=== PATIENT | female | born 1995 ===

== ENCOUNTER 2017-08-03 12:08 | Emergency (ER) | payer OTHER ==
[2017-08-03 12:58] VITALS: BP 113/60; PULSE 100; RESP 16; TEMP 98.7; O2SAT 100
[2017-08-03 15:56] LABS: BILIRUBIN, URINE NEG (NEG); BLOOD, URINE NEG (NEG); GLUCOSE,URINE NEG (NEG); HYALINE CAST, URINE 9 /lpf (RARE); KETONE, URINE 10 mg/dL (NEG); MUCUS URINE MOD /lpf (OCC); NITRITE,URINE NEG (NEG); SQUAMOUS EPITHELIAL CELL URINE 6 /hpf (0-5); TRANSITIONAL EPI CELLS, URINE <1 /hpf; URINE COLOR YELLOW (YELLW/STRAW); URINE LEUKOCYTE ESTERASE NEG (NEG)
[2017-08-03 15:57] LABS: AUTOMATED NEUTROPHIL # 2.3 TH/MM3 (1.8-7.7); BASOPHIL % 0.6 % (0.0-2.0); HEMATOCRIT 36.4 % (35.0-46.0); HEMOGLOBIN 12.3 GM/DL (11.6-15.3); LYMPH % 18.2 % (9.0-44.0); LYMPHOCYTE # 0.6 TH/MM3 (1.0-4.8); MEAN CORPUSCULAR HGB CONC 33.7 % (32.0-36.0); MEAN PLATELET VOLUME 9.6 FL (7.0-11.0); MONO % 14.1 % (0.0-8.0); MONOCYTE # 0.5 TH/MM3 (0-0.9); NEUT % 67.1 % (16.0-70.0); PLATELET COUNT 138 TH/MM3 (150-450); RED BLOOD COUNT 3.96 MIL/MM3 (4.00-5.30); RED CELL DISTRIBUTION WIDTH 12.9 % (11.6-17.2); WHITE BLOOD COUNT 3.4 TH/MM3 (4.0-11.0)
[2017-08-03 16:11] LABS: ALBUMIN 4.2 GM/DL (3.4-5.0); ALT (GPT) 17 U/L (9-42); AST (GOT) 18 U/L (16-38); BICARBONATE 24.2 MEQ/L (21.0-32.0); BLOOD UREA NITROGEN 14 MG/DL (7-18); CALCIUM 9.1 MG/DL (8.5-10.1); CHLORIDE 103 MEQ/L (98-107); CREATININE 0.91 MG/DL (0.50-1.00); GLOMERULAR FILTRATION RATE 80 ML/MIN (>89); GLUCOSE,RANDOM 69 MG/DL (74-106); SODIUM (NA) 137 MEQ/L (136-145)
[2017-08-03 16:13] LABS: ALKALINE PHOSPHATASE 43 U/L (45-117); TOTAL BILIRUBIN ADULT 0.6 MG/DL (0.2-1.0); TOTAL PROTEIN 7.8 GM/DL (6.4-8.2)
[2017-08-03 16:48] LABS: BANDS 4 % (0-6); LYMPHOCYTES 20 % (9-44); MONOCYTES 9 % (0-8); NEUTROPHIL # MANUAL DIFF 2.4 TH/MM3 (1.8-7.7); POLYS (SEG NEUTROPHILS) 67 % (16-70)
[2017-08-03] MEDS ORDERED: SODIUM CHLOR 0.9% 1000 ML INJ 1,000 ML IV SCH (17:27)
[2017-08-03 17:28] VITALS: O2SAT 99
[2017-08-03] MEDS ORDERED: ALUMINUM/MAGNESIUM/SIMETH 30 ML CUP PO ONE (17:30)
[2017-08-03] MEDS ORDERED: KETOROLAC TROMETHAMINE 30 MG/ML (IVP) VIAL IVP ONE (17:30)
[2017-08-03] MEDS ORDERED: LIDOCAINE VISCOUS 2% SOLN 15 ML UDC PO ONE (17:30)
[2017-08-03] MEDS ORDERED: FAMOTIDINE 20 MG/2 ML VIAL IV PUSH ONE (17:30)
[2017-08-03] MEDS ORDERED: SODIUM CHLORIDE 0.9% FLUSH 10 ML FLUSH IV FLUSH PRN (17:30)
--- NOTE | 2017-08-03 17:33 | PD ---
HPI Chief Complaint: Abdominal Pain Time Seen by Provider: 17:16 Travel History International Travel<30 days: No Contact w/Intl Traveler<30days: No Traveled to known affect area: No History of Present Illness HPI The patient is a 21-year-old female who presents to the emergency department for headache and epigastric abdominal pain. The patient is a 2 to three-day history of epigastric abdominal pain that is sharp, constant, however , now described as intermittent. The pain is now located in the upper abdomen, midline, and sharp. She denies any nausea, vomiting, or diarrhea. She also complains of fever as high as 103 this morning, alleviated with Tylenol. She also complains of a mild frontal headache over the frontal sinuses between the nose. She denies pain with extraocular movement, photophobia, diplopia, congestion, sore throat, neck pain, cough, nausea, vomiting, diarrhea, dysuria, frequency, urgency, or vaginal discharge. She has some generalized myalgias, however, that she rates her myalgias to running. The patient is a runner, runs approximately 50-60 miles per week. She is currently a student at [employer]. [facility] Past Medical History Medical History: Denies Significant Hx ?: Not LMP: 06/30/2017 Past Surgical History Narrative Surgical [place] tooth surgery Oral Surgery: Yes Social History Alcohol Use: No Tobacco Use: No Substance Use: No Allergies-Medications (Allergen,Severity, Reaction): Coded Allergies: No Known Allergies (Unverified , 08/03/17) Review of Systems Except as stated in HPI: all other systems reviewed are Neg General / Constitutional: Positive: Fever Eyes: No: Blurred Vision, Photophobia, Redness, Foreign Body Sensation, Pain, Visual changes HENT: Positive: Headaches, No: Sore Throat, Rhinitis, Rhinorrhea, Congestion, Neck Pain Cardiovascular: No: Chest Pain or Discomfort Respiratory: No: Cough Gastrointestinal: Positive: Abdominal Pain, No: Nausea, Vomiting, Diarrhea Genitourinary: No: Dysuria, Discharge Musculoskeletal: Positive: Myalgias Skin: No Rash Physical Exam Narrative GENERAL: Awake, alert, pleasant 21-year-old female who appears her stated age and is in no acute respiratory distress. SKIN: Focused skin assessment warm/dry. HEAD: Atraumatic. Normocephalic. EYES: Pupils equal and round. No scleral icterus. No injection or drainage. ENT: No nasal bleeding or discharge. Mucous membranes pink and moist. NECK: Trachea midline. No JVD. CARDIOVASCULAR: Regular rate and rhythm. No murmur appreciated. RESPIRATORY: No accessory muscle use. Clear to auscultation. Breath sounds equal bilaterally. GASTROINTESTINAL: Abdomen soft, non-tender, nondistended. Hepatic and splenic margins not palpable. MUSCULOSKELETAL: No obvious deformities. No clubbing. No cyanosis. No edema. NEUROLOGICAL: Awake and alert. No obvious cranial nerve deficits. Motor grossly within normal limits. Normal speech. PSYCHIATRIC: Appropriate mood and affect; insight and judgment normal. Data Data Last Documented VS Vital Signs Date Time Temp Pulse Resp B/P (MAP) Pulse Ox O2 Delivery O2 Flow Rate FiO2 08/03/17 17:28 99 Room Air 08/03/17 16:36 18 08/03/17 12:58 98.7 100 113/60 (77) Orders Orders Complete Blood Count With Diff (08/03/17 12:59) Comprehensive Metabolic Panel (08/03/17 12:59) Lipase (08/03/17 12:59) Urinalysis - C+S If Indicated (08/03/17 12:59) Ed Urine Pregnancytest Poc (08/03/17 12:59) Iv Access Insert/Monitor (08/03/17 17:27) Ecg Monitoring (08/03/17 17:27) Oximetry (08/03/17 17:27) Sodium Chlor 0.9% 1000 Ml Inj (Ns 1000 M (08/03/17 17:27) Sodium Chloride 0.9% Flush (Ns Flush) (08/03/17 17:30) Famotidine Inj (Pepcid Inj) (08/03/17 17:30) Ketorolac Inj (Toradol Inj) (08/03/17 17:30) Al-Mag Hy-Si 40-40-4 Mg/Ml Liq (Mag-Al P (08/03/17 17:30) Lidocaine 2% Viscous (Xylocaine 2% Visco (08/03/17 17:30) Monoscreen (08/03/17 17:33) Labs Laboratory Tests Test 08/03/17 14:20 08/03/17 18:15 White Blood Count 3.4 TH/MM3 Red Blood Count 3.96 MIL/MM3 Hemoglobin 12.3 GM/DL Hematocrit 36.4 % Mean Corpuscular Volume 92.0 FL Mean Corpuscular Hemoglobin 31.0 PG Mean Corpuscular Hemoglobin Concent 33.7 % Red Cell Distribution Width 12.9 % Platelet Count 138 TH/MM3 Mean Platelet Volume 9.6 FL Neutrophils (%) (Auto) 67.1 % Lymphocytes (%) (Auto) 18.2 % Monocytes (%) (Auto) 14.1 % Eosinophils (%) (Auto) 0.0 % Basophils (%) (Auto) 0.6 % Neutrophils # (Auto) 2.3 TH/MM3 Lymphocytes # (Auto) 0.6 TH/MM3 Monocytes # (Auto) 0.5 TH/MM3 Eosinophils # (Auto) 0.0 TH/MM3 Basophils # (Auto) 0.0 TH/MM3 CBC Comment AUTO DIFF Differential Total Cells Counted 100 Neutrophils % (Manual) 67 % Band Neutrophils % 4 % Lymphocytes % 20 % Monocytes % 9 % Neutrophils # (Manual) 2.4 TH/MM3 Differential Comment FINAL DIFF MANUAL Platelet Estimate NORMAL Platelet Morphology Comment NORMAL Red Cell Morphology Comment NORMAL Urine Color YELLOW Urine Turbidity HAZY Urine pH 6.0 Urine Specific Carmen 1.032 Urine Protein 100 mg/dL Urine Glucose (UA) NEG mg/dL Urine Ketones 10 mg/dL Urine Occult Blood NEG Urine Nitrite NEG Urine Bilirubin NEG Urine Urobilinogen 2.0 MG/DL Urine Leukocyte Esterase NEG Urine RBC 2 /hpf Urine WBC 2 /hpf Urine Squamous Epithelial Cells 6 /hpf Urine Transitional Epithelial Cells <1 /hpf Urine Hyaline Casts 9 /lpf Urine Mucus MOD /lpf Microscopic Urinalysis Comment CULT NOT INDICATED Blood Urea Nitrogen 14 MG/DL Creatinine 0.91 MG/DL Random Glucose 69 MG/DL Total Protein 7.8 GM/DL Albumin 4.2 GM/DL Calcium Level 9.1 MG/DL Alkaline Phosphatase 43 U/L Aspartate Amino Transf (AST/SGOT) 18 U/L Alanine Aminotransferase (ALT/SGPT) 17 U/L Total Bilirubin 0.6 MG/DL Sodium Level 137 MEQ/L Potassium Level 3.5 MEQ/L Chloride Level 103 MEQ/L Carbon Dioxide Level 24.2 MEQ/L Anion Gap 10 MEQ/L Estimat Glomerular Filtration Rate 80 ML/MIN Lipase 99 U/L Monoscreen NEG MDM Medical Decision Making Medical Screen Exam Complete: Yes Emergency Medical Condition: Yes Medical Record Reviewed: Yes Interpretation(s) Laboratory Tests Test 08/03/17 14:20 White Blood Count 3.4 TH/MM3 Red Blood Count 3.96 MIL/MM3 Hemoglobin 12.3 GM/DL Hematocrit 36.4 % Mean Corpuscular Volume 92.0 FL Mean Corpuscular Hemoglobin 31.0 PG Mean Corpuscular Hemoglobin Concent 33.7 % Red Cell Distribution Width 12.9 % Platelet Count 138 TH/MM3 Mean Platelet Volume 9.6 FL Neutrophils (%) (Auto) 67.1 % Lymphocytes (%) (Auto) 18.2 % Monocytes (%) (Auto) 14.1 % Eosinophils (%) (Auto) 0.0 % Basophils (%) (Auto) 0.6 % Neutrophils # (Auto) 2.3 TH/MM3 Lymphocytes # (Auto) 0.6 TH/MM3 Monocytes # (Auto) 0.5 TH/MM3 Eosinophils # (Auto) 0.0 TH/MM3 Basophils # (Auto) 0.0 TH/MM3 CBC Comment AUTO DIFF Differential Total Cells Counted 100 Neutrophils % (Manual) 67 % Band Neutrophils % 4 % Lymphocytes % 20 % Monocytes % 9 % Neutrophils # (Manual) 2.4 TH/MM3 Differential Comment FINAL DIFF MANUAL Platelet Estimate NORMAL Platelet Morphology Comment NORMAL Red Cell Morphology Comment NORMAL Urine Color YELLOW Urine Turbidity HAZY Urine pH 6.0 Urine Specific Carmen 1.032 Urine Protein 100 mg/dL Urine Glucose (UA) NEG mg/dL Urine Ketones 10 mg/dL Urine Occult Blood NEG Urine Nitrite NEG Urine Bilirubin NEG Urine Urobilinogen 2.0 MG/DL Urine Leukocyte Esterase NEG Urine RBC 2 /hpf Urine WBC 2 /hpf Urine Squamous Epithelial Cells 6 /hpf Urine Transitional Epithelial Cells <1 /hpf Urine Hyaline Casts 9 /lpf Urine Mucus MOD /lpf Microscopic Urinalysis Comment CULT NOT INDICATED Blood Urea Nitrogen 14 MG/DL Creatinine 0.91 MG/DL Random Glucose 69 MG/DL Total Protein 7.8 GM/DL Albumin 4.2 GM/DL Calcium Level 9.1 MG/DL Alkaline Phosphatase 43 U/L Aspartate Amino Transf (AST/SGOT) 18 U/L Alanine Aminotransferase (ALT/SGPT) 17 U/L Total Bilirubin 0.6 MG/DL Sodium Level 137 MEQ/L Potassium Level 3.5 MEQ/L Chloride Level 103 MEQ/L Carbon Dioxide Level 24.2 MEQ/L Anion Gap 10 MEQ/L Estimat Glomerular Filtration Rate 80 ML/MIN Lipase 99 U/L Monoscreen negative Differential Diagnosis Differential diagnosis includes influenza, sinusitis, mononucleosis, viral syndrome, gastritis, peptic ulcer disease, UTI, atypical cholecystitis, atypical appendicitis, pharyngitis. Narrative Course The patient's physical examination is unremarkable except for slightly elevated heart rate of 100 and young healthy female that runs approximately 50-60 miles per week. Mild dehydration as well as tenderness over the frontal sinus, may be sinusitis versus viral syndrome. Abdominal exam is benign. Patient was administered Toradol, IV fluids, Pepcid, GI cocktail. Monoscreen was sent to lab. The patient's CBC did reveal elevated monocytes, white count was slightly low, otherwise CMP and lipase are unremarkable. UA was negative. Bedside UA test was negative. Coffee screen is negative. 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 Patient most likely has a viral syndrome, possibly mononucleosis with early false negative. She will be provided a school excuse for 2 days. Activity as tolerated. Plenty fluids to stay hydrated. Return if symptoms worsen or progress. Diagnosis Primary Impression: Abdominal pain Qualified Codes: R10.13 - Epigastric pain Additional Impressions: Cephalgia Qualified Codes: R51 - Headache Viral syndrome Patient Instructions: General Instructions Additional Instructions: Please provide the patient a copy of her labs at discharge. School excuse for today and tomorrow. Plenty fluids to see hydrated. Alternate Tylenol and Motrin as needed for pain and fever. Return if symptoms worsen or progress. Med/Other Pt SpecificInfo: No Change to Meds Disposition: 01 DISCHARGE HOME Condition: Stable Jacobo Au MD Aug 03, 2017 17:33
[2017-08-03 19:08] LABS: MONOSCREEN NEG (NEG)
== END 2017-08-03 20:08 | disposition home or self-care (01) ==
LOC: NED 12:08 → NEPD 20:08
DX: R10.13 Epigastric pain (principal); R51 Headache; B34.9 Viral infection, unspecified; M79.1 Myalgia
CPT/HCPCS: 80053; 81001; 83690; 84703; 85007; 85027; 86308; 96361; 96374; 96375; 99284; J1885; J7030